=== PATIENT | female | born 1985 | race Caucasian/White ===

== ENCOUNTER 2017-09-24 18:22 | Emergency (ER) | payer MEDICAID ==
[~2017-09-24] VITALS: Ht 170.2 cm; Wt 147.0 kg
[~2017-09-24 18:22] MED LIST: ATORVASTATIN CA20 MG PO; CLINDAMYCIN HC150 MG PO; HUMALOG100 UNIT/1; HYDROCHLOROTHIA25 MG; Insulin Detemir SQ; LANTUS100 UNITS/; LISINOPRIL10 MG PO; ULTRAM50 MG PO
[2017-09-25 02:00] VITALS: BP 142/84
== END 2017-09-25 02:07 | disposition home or self-care (01) ==
LOC: ER 18:22
DX: M25.511 Pain in right shoulder (principal); S43.421A Sprain of right rotator cuff capsule, initial encounter; X50.0XXA Overexertion from strenuous movement or load, initial encounter; Y92.008 Other place in unspecified non-institutional (private) residence as the place of occurrence of the external cause
CPT/HCPCS: 99283